=== PATIENT | male | born 1975 | race Caucasian/White ===

== ENCOUNTER 2021-04-27 07:27 | Emergency (ER) | payer OTHER ==
[~2021-04-27] VITALS: Ht 177.8 cm; Wt 111.7 kg
--- NOTE | 2021-04-27 07:48 | NUR ---
PT C/O LT SIDE OF FACE PAIN. STARTED SUNDAY IN EAR AND HAS SPREAD. DENIED FEVER, EAR DRAINAGE, TRAUMA. ABLE TO OPEN & CLOSE MOUTH W/OUT DIFFICULTY; REPORTS PAIN SPREADING TO JAW. REPORTS NECK PAIN W/ TURNING HEAD TO RIGHT; OTHERWISE + ROM W/OUT PAIN. HAS YOUNG CHILDREN; BOTH IN GOOD HEALTH. TOOK IBUPROFEN (LAST DOSE 0600)
[2021-04-27] MEDS ORDERED: SUMA100T3 PO (08:07)
[2021-04-27 08:09] VITALS: BP 146/99
--- NOTE | 2021-04-27 08:36 | NUR ---
AWAITING POC FOR PT
--- NOTE | 2021-04-27 08:49 | NUR ---
WRITTEN DC INSTRUCTIONS DISCUSSED W/ PT; UNDERSTANDING VERBALIZED. PT AMBULATORY TO DC DESK W/ STEADY GAIT.
== END 2021-04-27 08:50 | disposition home or self-care (01) ==
LOC: ED 08:22
DX: K08.89 Other specified disorders of teeth and supporting structures (principal); H92.02 Otalgia, left ear; G43.909 Migraine, unspecified, not intractable, without status migrainosus
CPT/HCPCS: 99283